=== PATIENT | male | born 1940 | race Caucasian/White ===

== ENCOUNTER → 2017-06-23 09:10 | Outpatient (CLI) | payer MEDICARE, OTHER, SELFPAY ==
[2017-06-23 12:03] LABS: Absolute Lymphocyte Count 2.07 X10^3/ul (0.83-4.51); Absolute Neutrophil Count 4.4 X10^3/uL (2.0-7.7); Basophil# 0.01 X10^3/uL; Basophil% 0.1 % (0-1); Eosinophil# 0.07 X10^3/uL; Hematocrit 42.5 % (40-54); Hemoglobin 13.9 g/dl (13.0-16.5); Lymphocyte # 2.07 X10^3/ul (4.0); Lymphocyte % 28.9 % (19-41); Mean Corp Hgb Conc 32.7 g/gl (32-36); Mean Corpuscular Hgb 29.5 pg (27.0-32.0); Mean Corpuscular Volume 90.2 fL (80-94); Mean Platelet Vol. 10.4 fl (6.2-12.0); Monocyte# 0.62 X10^3/uL; Monocyte% 8.6 % (0-10); Neutrophil # 4.37 X10^3/uL (2.7-7.7); Platelet Count 257 K/mm3 (150-450); RBC Distribution Width CV 13.6 % (11.6-14.6); RBC Distribution Width SD 44.3 fl (35.1-43.9); Red Blood Count 4.71 M/mm3 (4.6-6.2); White Blood Count 7.2 K/mm3 (4.4-11.0)
[2017-06-23 12:06] LABS: POSITIVE COUNT NO; POSITIVE DIFFERENTIAL NO; POSITIVE MORPHOLOGY NO
[2017-06-23 12:19] LABS: ALB/GLOB Ratio 1.1 RATIO (0.9-2.4); AST(SGOT) 27 U/L (15-37); Alanine Aminotransfer ALT/SGPT 34 U/L (16-61); Albumin, Serum 4.1 g/dL (3.2-5.0); Alkaline Phosphatase 56 U/L (45-117); Anion Gap 9 (5-15); BUN 27 mg/dL (7-18); BUN/Creat Ratio 20.5 RATIO (10-20); Calcium,Total 8.9 mg/dL (8.5-10.1); Chloride 104 mmol/L (98-107); Cholesterol 182 mg/dL (200); Creatinine, Serum 1.32 mg/dL (0.70-1.30); EST Glomerular Filtration Rate 56 mL/min (>60); Est Glom Filt Rate - Afr Amer 68 mL/min (>60); Globulin 3.9 g/dL (2.2-4.2); Glucose 80 mg/dL (74-106); High Density Lipoprotein 56 mg/dL; Potassium 3.3 mmol/L (3.5-5.1); Sodium Level 140 mmol/L (136-145); Triglycerides 205 mg/dL; Uric Acid 7.2 mg/dL (3.5-7.2); Very Low Density Lipoprotein 41 mg/dL (5-40)
== END ==
PROVIDERS: Family Provider Family Medicine; PCP Family Medicine; Visit Provider Family Medicine
DX: I10 Essential (primary) hypertension (principal); E78.5 Hyperlipidemia, unspecified; M10.9 Gout, unspecified
CPT/HCPCS: 36415; 80053; 80061; 84550; 85025

== ENCOUNTER → 2017-06-29 14:52 | Outpatient (CLI) | payer MEDICARE, OTHER, SELFPAY ==
--- NOTE | 2017-06-29 14:55 | RAD_ITS ---
STUDY: X-RAY - LEFT HAND REASON FOR EXAM: Male, 76 years old. Fifth metacarpal palmar pain for 8 months. TECHNIQUE: Three view(s) of the hand. COMPARISON: None. FINDINGS: Bones: There is generalized osteopenia. Joints: There is moderate arthrosis of the radial carpal row, moderate to severe arthrosis of the first carpometacarpal joint with sclerosis, osteophyte formation and intra-articular osteochondral bodies and mild arthrosis of the metacarpal phalangeal and interphalangeal joints. There are no erosions. Soft tissues: The soft tissues are unremarkable. Foreign body: None RAD/Hand Min 3 Views IMPRESSION: Osteopenia with osteoarthritic changes as described. Electronically Signed: Naveen Witt MD at 12:48 EDT , Service support ,
== END ==
PROVIDERS: Family Provider Family Medicine; PCP Family Medicine; Visit Provider Orthopaedic Surgery
DX: M79.642 Pain in left hand (principal)
CPT/HCPCS: 73130

== ENCOUNTER → 2017-07-06 17:32 | Outpatient (CLI) | payer MEDICARE, OTHER, SELFPAY ==
--- NOTE | 2017-07-06 17:38 | MRI_ITS ---
STUDY: MRI LEFT HAND REASON FOR EXAM: Male, 76 years old. Solid non-painful mass at base of fourth and fifth digits. TECHNIQUE: Standardized fat and water weighted pulse sequences were obtained in all 3 orthogonal planes. COMPARISON: Radiographs of the left hand dated June 29, 2017. FINDINGS: There is moderate arthrosis of the intercarpal articulations, first carpometacarpal joint and metacarpophalangeal and interphalangeal joints (coronal series 4 images 5-16). There is a circumscribed mass in close continuity with the flexor tendon of the fifth digit at the metacarpophalangeal joint. The lesion is circumscribed and has mixed signal intensity within it. The lesion is low signal intensity on the T1-weighted images and heterogeneous in signal intensity on the T2-weighted images. The lesion measures 2.7 cm x 2 cm x 1.2 cm. 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 Biopsy for histologic confirmation would be appropriate. Normal visualized thenar and hypothenar muscles. Normal lumbricalis and interosseous muscles. 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 Biopsy for histologic confirmation would be appropriate. Electronically Signed: Naveen Witt MD at 14:21 EDT , Service support ,
== END ==
PROVIDERS: Family Provider Family Medicine; PCP Family Medicine; Visit Provider Orthopaedic Surgery
DX: R22.9 Localized swelling, mass and lump, unspecified (principal)
CPT/HCPCS: 73218

== ENCOUNTER 2017-08-16 06:03 | Day surgery (SDC) | payer MEDICARE, OTHER, SELFPAY ==
--- NOTE | 2017-08-16 | IMM_PTH ---
PATIENT: RICHARD RICHARD LOC: [facility] [place] U#:[id number] AGE/SX: 76/M ROOM: RE08/16/[address]: Dr. Mirian Fuller DO : 1940 BED: DIS: 08/16/2017 SPEC #: [id number] RECD: 08/18/17 11:31 STATUS: ROSIE REJanet #: [id number] AYLA: 08/16/17 00:[address]: Mirian Fuller DEPT: IMMUNOHISTOCHEMISTRY RECD BY: Jodi Freeman ENTERED: 08/18/17 11:35 SP TYPE: IMMUNO OTHR DR: Dr. Jann Mayo, DO Tissues: Hand, NOS Procedures: CK8 (add) DESMIN (add) MACRO (add) Vimentin (add) Smooth Muscle Actin S-100 (add) PHYSICIAN & INSTITUTION [place] [id number] SPECIMEN INFORMATION: Tissue Source: Giant cell tumor palmar aspect left hand Clinical Info: Giant cell tumor palmar aspect left hand Specimen Number: [id number] #2 CPT code: 03748, 44546 x5 METHODOLOGY: Deparaffinized sections of prefer/formalin-fixed tissue or PAP/DQ stained slides are incubated with monoclonal/polyclonal antibodies/oligonucleotide probes. Localization is made via biotin free immunoperoxidase method. Appropriate controls are performed and reacted as expected. Results on target cell population are indicated in the following table: RESULTS: ANTIBODY / CLONE RESULT Block 2 Actin (1A4) negative Desmin (CE-R-11) negative Vimentin (V9) positive Macro (HAM-56) positive CK8 (00hfyrE40) negative S-100 (4C4.9) negative These tests were developed and their performance characteristics determined by [facility]. They may not have been cleared or approved by the [place]. Food and Drug Administration. The FDA has determined that such clearance or approval is not necessary. INTERPRETATION: Giant cell tumor palmar aspect left hand: Consistent with giant cell tumor of tendon sheath. KANDIS:mily 08/18/17
[2017-08-16 06:27] VITALS: BP 170/86; PULSE 66; RESP 14; TEMP 36; O2SAT 100; BMI 25.7
[2017-08-16] MEDS: Cefazolin 2 GM in 0.9% Normal Saline 100 ML IV (07:28)
--- NOTE | 2017-08-16 07:30 | MISC_PTH ---
PATIENT: RICHARD RICHARD LOC: [facility] – [place] U#:[id number] AGE/SX: 76/M ROOM: RE08/16/[address]: Dr. Mirian Fuller DO : 1940 BED: DIS: 08/16/2017 SPEC #: [id number] RECD: 08/16/17 15:14 STATUS: ROSIE MELO #: [id number] AYLA: 08/16/17 07:[address]: Mirian Fuller DEPT: SURGICAL PATHOLOGY RECD BY: Richard Gaming ENTERED: 08/17/17 09:04 SP TYPE: [facility] [place] [facility] DR: Dr. Jann Mayo DO Tissues: TISSUE SURGICALLY REMOVED Procedures: Surgery Specimen Level IV HEADER OPERATION: Left palmar giant cell tumor excision, fifth flexor tendon PRE-OP DIAGNOSIS: Giant cell tumor left hand palmar aspect TISSUE SUBMITTED: Giant cell tumor palmar aspect left hand MICROSCOPIC DIAGNOSIS Giant cell tumor, palmar aspect left hand, excision: Consistent with giant cell tumor of tendon sheath. KANDIS:mily 08/18/17 COMMENT Immunohistochemistry ([id number]) supports the above diagnosis. MICROSCOPIC DESCRIPTION Slides are reviewed. GROSS DESCRIPTION Received in fixative is one container labeled with the patient's name and designated giant cell tumor of palmar aspect left hand. The specimen consists of a laurent-light yellowish nodule measuring 2.5 x 2.5 x 1.5 cm. The specimen is inked, serially sectioned and reveals laurent-light yellow solid cut surfaces. The entire specimen is submitted in three cassettes. / KANDIS:mily 08/17/17 TC:5 CPT: 30375
[2017-08-16] MEDS: Ondansetron 4 MG/2 ML Vial (08:55)
[2017-08-16] MEDS: Mupirocin Ointment 22gm Tube 1 APPLIC (08:57)
[2017-08-16] MEDS: Bupivacaine 0.25% 30 ML Vial (08:57)
[2017-08-16 09:08] VITALS: BP 119/85; BP 170/86; PULSE 61; RESP 16; TEMP 36.3; O2SAT 96
--- NOTE | 2017-08-16 09:14 | PCM.DC.ORTHO ---
Discharge Diet: No Restrictions - leave dressing on until seen in postop clinic, call with concerns Discharge Activity: May Not Drive May shower in (days): 1 Ice area for (Minutes): 20 - Every hour while awake. Weight Bearing Status: Weight bearing as tolerated Keep extremity elevated above heart level: Operative Extremity Call your doctor if your incision/area has: Continuous Slow Oozing, Sudden Increased Bleeding, Increased Pain/ Swelling, Increased Redness, Foul Smelling Discharge Call your doctor if you observe: Fever of 101 or Higher, Coldness, Increased Pain, Numbness or Tingling, Change in Color, Calf discomfort Allergies/Adverse Reactions: Allergies No Known Allergies Allergy (Verified 08/09/17 14:09) Medications to take at Discharge allopurinol 100 mg tablet 100 mg PO QODAY 06/29/17 ascorbic acid (vitamin C) 250 mg tablet 250 mg PO QDAY 06/29/17 calcium carbonate 500 mg calcium (1,250 mg) tablet 500 mg PO DAILY tab 06/29/17 felodipine ER 10 mg tablet,extended release 24 hr 10 mg PO QDAY 06/29/17 metoprolol succinate ER 100 mg tablet,extended release 24 hr 100 mg PO DAILY 06/29/17 multivitamin tablet 1 tab PO QAM 06/29/17 simvastatin 20 mg tablet 20 mg PO QAM 06/29/17 triamterene 37.5 mg-hydrochlorothiazide 25 mg capsule 1 cap PO QAM 06/29/17 Hydrocodone Bitart/Apap 5-325 [[place] 5MG-325MG] 1 - 2 tablet PO Q6H PRN PRN 5 Days #56 tablet 08/16/17 The following prescriptions were given: Hydrocodone Bitart/Apap 5-325 [[place] 5MG-325MG] 1 - 2 tablet PO Q6H PRN PRN 5 Days #56 tablet PRN Reason: Pain Primary Care Physician: Jann Mayo DO [Primary Care Provider] - Please Follow Up With: Mirian Fuller DO - [phone]
[2017-08-16 09:15] VITALS: BP 129/75; BP 170/86; PULSE 61; RESP 14; O2SAT 96
--- NOTE | 2017-08-16 09:15 | PCM.OPRPT ---
Report of Operation Date of Procedure: 08/16/17 Pre-Operative Diagnosis: left hand complicated giant cell tumor Post-Operative Diagnosis: same Surgery/Procedure Performed:: left hand palmar complicated giant cell tumor excision Type of Anesthesia:: General Anesthesiologist: Augusto Cunha Special Medications: giant cell tumor Drains: 65 mins Estimated Blood Loss (mL): none Fluids Replaced: 1000ml lr Description of Procedure: Preoperative note Patient is a 76-year-old male with enlarging hand mass for the past year. MRI confirms giant cell tumor. Risks benefits and alternatives surgery discussed with patient. Risks including but not limited to blood loss, blood clot, infection, neurovascular injury, failure procedure, loss of life and loss of limb. Patient is aware would like proceed with left hand palmar excision. Due to the complicated nature and the most likely nerve involvement at the level of the MP joint at the place where the [place] on it looks like the nerve is very close to the tumor Dr. Montoya was involved with the case as well. Operative note Patient seen and examined preoperative holding area. Left hand was marked. Patient is brought to the operating placed supine on the operating room table. Signing, anesthesia, antibiotics were administered. Left hand was prepped and draped in usual sterile fashion with tourniquet around her upper arm. Timeout was performed. We marked out our extended Karlo incision over the fifth proximal phalanx extending into the palmar aspect of the hand. We then used a 15 blade to create her incision we dissected down tenotomy syllable of the giant cell tumor. We able to dissect the giant cell tumor out in its entirety find the stalk and the ride the stalk as well. Please note that ulnarly the nerve was in close approximation to the giant cell tumor and Dr. Montoya was part of his case for the dissection of the nerve and possible repair of the nerve the giant cell had actually wrapped around the tumor which it had not however due to the complicated course of the giant cell tumor and involvement of the nerve he did perform the dissection was available at all times for the case. We excised the lesion in its entirety there was no perforation of the tumor. We sent the tumor to pathology for further evaluation. There are no obvious satellite lesions visualized. We also excised the A1 winsome to ensure that there is no tendon involvement that was where the stalk actually had originated from.and also excised the volar capsule and visualized the joint to ensure no extension of tumor into the joint. We irrigated the incision with copious amounts of sterile saline incision was closed with interrupted nylon for 4-0 nylon sutures. Sterile dressings were applied tourniquet was deflated for total working time of 65 minutes. Patient tolerated procedure well there are no comp occasions patient was transferred to recovery room in stable condition. Next Postoperative note Vicodin at Hospital pharmacy Call with increased pain numbness tingling further issues arise Follow-up in 2 weeks This note was generated with [employer] dictation software. It may contain incorrect words, spelling, and punctuation that were not noted in checking the note before signing.
[2017-08-16 09:30] VITALS: BP 130/77; BP 170/86; PULSE 59; RESP 16; O2SAT 100
[2017-08-16 09:42] VITALS: BP 121/65; BP 170/86; PULSE 59; RESP 16; TEMP 36; O2SAT 100
[2017-08-16 10:48] VITALS: BP 170/86
== END 2017-08-16 10:52 | disposition home or self-care (01) ==
LOC: SDC 06:04 → AC 06:05
PROVIDERS: Family Provider Family Medicine; PCP Family Medicine; Visit Provider Orthopaedic Surgery
PROC: (CPT 26111; principal; 2017-08-16 07:15)
DX: D48.1 Neoplasm of uncertain behavior of connective and other soft tissue (principal); I10 Essential (primary) hypertension; Z87.891 Personal history of nicotine dependence; M16.11 Unilateral primary osteoarthritis, right hip; E78.00 Pure hypercholesterolemia, unspecified; Z85.820 Personal history of malignant melanoma of skin; Z79.899 Other long term (current) drug therapy
CPT/HCPCS: 26111; 26160; 88305; 88341; 88342; J7120; J2405

== ENCOUNTER → 2018-01-09 13:34 | Outpatient (CLI) | payer MEDICARE, OTHER, SELFPAY ==
[2018-01-09 15:16] LABS: Absolute Lymphocyte Count 1.57 X10^3/ul (0.83-4.51); Absolute Neutrophil Count 5.7 X10^3/uL (2.0-7.7); Basophil# 0.03 X10^3/uL; Basophil% 0.4 % (0-1); Eosinophil# 0.05 X10^3/uL; Eosinophils% 0.6 % (0-5); Hematocrit 38.5 % (40-54); Hemoglobin 13.1 g/dl (13.0-16.5); Lymphocyte # 1.57 X10^3/ul (4.0); Mean Corpuscular Hgb 30.3 pg (27.0-32.0); Mean Corpuscular Volume 88.9 fL (80-94); Mean Platelet Vol. 10.1 fl (6.2-12.0); Monocyte# 0.48 X10^3/uL; Monocyte% 6.1 % (0-10); Neutrophil # 5.69 X10^3/uL (2.7-7.7); Neutrophil % 72.6 % (47-70); Platelet Count 286 K/mm3 (150-450); RBC Distribution Width CV 13.5 % (11.6-14.6); RBC Distribution Width SD 43.5 fl (35.1-43.9); Red Blood Count 4.33 M/mm3 (4.6-6.2); White Blood Count 7.8 K/mm3 (4.4-11.0)
[2018-01-09 15:17] LABS: POSITIVE COUNT NO; POSITIVE DIFFERENTIAL NO; POSITIVE MORPHOLOGY NO
[2018-01-09 15:26] LABS: Anion Gap 8 (5-15); BUN 28 mg/dL (7-18); Calcium,Total 9.2 mg/dL (8.5-10.1); Chloride 105 mmol/L (98-107); EST Glomerular Filtration Rate 53 mL/min (>60); Est Glom Filt Rate - Afr Amer 64 mL/min (>60); Glucose 120 mg/dL (74-106); Potassium 3.3 mmol/L (3.5-5.1); Sodium Level 140 mmol/L (136-145); Uric Acid 7.5 mg/dL (3.5-7.2)
[2018-01-09 15:38] LABS: Microalbumin,Random Urine 16.8 mg/L (NO RANGE EST.)
== END ==
PROVIDERS: Family Provider Family Medicine; PCP Family Medicine; Visit Provider Family Medicine
DX: I12.9 Hypertensive chronic kidney disease with stage 1 through stage 4 chronic kidney disease, or unspecified chronic kidney disease (principal); N18.3 Chronic kidney disease, stage 3 (moderate)
CPT/HCPCS: 36415; 80048; 82043; 82570; 84550; 85025

== ENCOUNTER → 2018-02-26 08:37 | Outpatient (CLI) | payer MEDICARE, OTHER, SELFPAY ==
--- NOTE | 2018-02-26 08:50 | RDU_ITS ---
Reason For Study: HTN Right Renal Artery Right renal artery ostium 93/17 RSV/EDV. Right renal artery proximal 37184 PSV/EDV. Right renal artery mid 143/35 PSV/EDV. Right renal artery distal 186/40 PSV/EDV. Right Renal Parenchyma Upper Pole Medula 53/13 PSV/EDV. Right upper pole medulla EDR 0.25 . Right upper pole medulla R.I. 0.76 . Upper Matthias Cortx 28/6 PSV/EDV. Right upper pole cortex EDR 0.21 . Right upper pole cortex R.I. 0.77 . Right lower Pole medulla 41/11 PSV/EDV . Right lower pole medulla EDR 0.27 . Right lower pole medulla R.I. 0.74 . Lower Pole Cortex 25/6 PSV/EDV. Right lower pole cortex EDR 0.24 . Right lower pole cortex R.I. 0.77 . Right Renal Hilar Right Hilar avg 58/14 PSV/EDV. Right hilar acceleration time 59 m/sec. Right Renal Dimensions Right kidney size 11.8 cm . Right cortical dimension 1.50 cm . Aorta Proximal abdominal aorta 2.29cm x 2.21 cm . Proximal abdominal aorta peak systolic velocity is 119 cm/sec . Distal abdominal aorta 1.43cm x 1.55 cm . Distal abdominal aorta peak systolic velocity is 168 cm/sec . Procedures Absent Left Kidney. Interpretation Summary Absent left kidney <60% stenosis right renal artery Maintained right renal length 11.8cm Maximal aortic diameter proximally 2.29 x 2.21cm Slightly increased aortic velocities making renal artery to aortic ratios not reliable. Ordering Physician: Mele Ventura Referring Physician: Jann Mayo Performed By: Jeniffer Reaves, YONATAN, RVT
== END ==
PROVIDERS: Family Provider Family Medicine; PCP Family Medicine; Referring Provider Internal Medicine Nephrology; Visit Provider Internal Medicine Nephrology
DX: I10 Essential (primary) hypertension (principal)
CPT/HCPCS: 93975

== ENCOUNTER → 2018-05-22 16:15 | Outpatient (CLI) | payer MEDICARE, OTHER, SELFPAY ==
[2018-05-22 17:39] LABS: Microalbumin:Creatinine Ratio 766.7 mg/g CRE (<30 mg/g CRE)
[2018-05-22 17:47] LABS: Anion Gap 10 (5-15); BUN 25 mg/dL (7-18); BUN/Creat Ratio 20.8 RATIO (10-20); Calcium,Total 8.9 mg/dL (8.5-10.1); Chloride 104 mmol/L (98-107); EST Glomerular Filtration Rate 63 mL/min (>60); Est Glom Filt Rate - Afr Amer 76 mL/min (>60); Glucose 93 mg/dL (74-106); Potassium 3.3 mmol/L (3.5-5.1); Sodium Level 139 mmol/L (136-145)
== END ==
PROVIDERS: Family Provider Family Medicine; PCP Family Medicine; Referring Provider Internal Medicine Nephrology; Visit Provider Internal Medicine Nephrology
DX: N18.3 Chronic kidney disease, stage 3 (moderate) (principal)
CPT/HCPCS: 36415; 80048; 82043; 82570